=== PATIENT | male | born 1940 | race Caucasian/White ===

== ENCOUNTER 2019-02-05 11:14 | Emergency (ER) | payer BC, MEDICARE ==
[2019-02-05 11:45] VITALS: BP 139/88
--- NOTE | 2019-02-05 11:57 | UC ---
Neck Pain HPI - HPI Summary HPI Summary: Mr. Hanna has had several days of neck pain and stiffness. It hurts to do any movement and especially when he is lying flat. He tells me his got sinus postnasal drip which she suffers from chronically. He has no known injury. - History of Current Complaint Chief Complaint: UCBackPain Stated Complaint: STIFF NECK HEAD PAIN Time Seen by Provider: 02/05/19 11:32 Pain Intensity: 10 - Allergies/Home Medications Allergies/Adverse Reactions: Allergies Allergy/AdvReac Type Severity Reaction Status Date / Time ibuprofen Allergy Itching Verified 02/05/19 11:45 Home Medications: Home Medications Acetaminophen 1,300 mg PO ONCE PRN 02/05/19 [History Confirmed 02/05/19] Aspirin 1 tab PO DAILY 02/05/19 [History Confirmed 02/05/19] Multivitamin [Multivitamins] 1 tab PO DAILY 02/05/19 [History Confirmed 02/05/19 ] Rosuvastatin Calcium [Crestor] 1 tab PO DAILY 02/05/19 [History Confirmed ] PMH/Surg Hx/FS Hx/Imm Hx Previously Healthy: Yes - Surgical History Surgical History: Yes Surgery Procedure, Year, and Place: triple bypass. right hip replacement. left shoulder repair - Social History Alcohol Use: Rare Substance Use Type: None Smoking Status (MU): Former Smoker Review of Systems All Other Systems Reviewed And Are Negative: Yes ENT: Positive: Nasal Discharge, Sinus Congestion. Negative: Sore Throat, Ear Ache Respiratory: Positive: Negative Motor: Positive: Decreased ROM Neurovascular: Positive: Negative Musculoskeletal: Positive: Decreased ROM Neurological: Positive: Negative Physical Exam - Summary Physical Exam Summary: He is nontoxic in appearance with stable vital signs but appears to be in pain holding his neck stiffly. Triage Information Reviewed: Yes Appearance: Well-Appearing, Pain Distress Vital Signs: Initial Vital Signs Temp 99.1 F 02/05/19 11:39 Pulse 84 02/05/19 11:39 Resp 18 02/05/19 11:39 BP 139/88 02/05/19 11:39 Pulse Ox 96 02/05/19 11:39 Vital Signs Reviewed: Yes Eyes: Positive: Conjunctiva Clear ENT Exam: Normal Neck: Positive: No Lymphadenopathy, Tenderness @ - He's tender paracervically especially at the base of his occiput. Musculoskeletal: Positive: ROM Limited @ Neurological Exam: Normal Diagnostics - Radiology CT cervical spine Radiology Interpretation Completed By: Radiologist Summary of Radiographic Findings: No Acute Process Neck Pain Course/Dx - Course Course Of Treatment: Mr. Hanna believes that this is a sinus infection. I think that he's got a stiff neck from significant DDD. I offered him an antibiotic but let him know that I did not think that would be effective. I would prefer to use a steroid burst. He agreed to it and is going to follow-up with Dr. Payne on Saturday. - Differential Dx/Diagnosis Provider Diagnosis: Cervical arthritis Discharge - Sign-Out/Discharge Documenting (check all that apply): Patient Departure All imaging exams completed and their final reports reviewed: Yes - Discharge Plan Condition: Stable Disposition: HOME Patient Education Materials: Cervical Disc Herniation (ED) Referrals: Krishna Payne MD [Primary Care Provider] - - Billing Disposition and Condition Condition: STABLE Disposition: Home
== END 2019-02-05 13:10 | disposition home or self-care (01) ==
LOC: UCEAST 11:14
DX: M47.9 Spondylosis, unspecified (principal); Z95.1 Presence of aortocoronary bypass graft
CPT/HCPCS: 72125; 99202; G0463